=== PATIENT | female | born 1995 | race Caucasian/White ===

== ENCOUNTER 2017-03-11 10:41 | Emergency (ER) | payer MEDICAID ==
[2017-03-11 11:01] VITALS: BP 104/62
--- NOTE | 2017-03-11 11:25 | EDM.PDOC ---
ED HISTORY OF PRESENT ILLNESS - General Chief Complaint: Fever Stated Complaint: SORE THROAT,BODY ACHES,MIGRAINE,FEVER,RUNNY NOSE Time Seen by Provider: 03/11/17 11:05 Source of Information: Reports: Patient History Limitations: Reports: No limitations - History of Present Illness INITIAL COMMENTS - FREE TEXT/NARRATIVE: 21 YO WF presents to ER with cough, congestion, headache, fever/chills and body aches x 2 days. Pt reports taking OTC cold medicine yesterday without improvement. Symptom Onset Date: 03/10/17 Timing/Duration: Reports: Day(s): (2) Severity: mild Location, General: Reports: head, generalized Quality: Reports: Ache Improves with: Reports: Rest Worsens with: Reports: None Associated Symptoms (General): Reports: cough, headaches. 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 Neurological History: Reports: Migraines Psychiatric History: Reports: Depression, Suicide attempt - Past Surgical History Female Surgical History: Reports: section Neurological Surgical History: Reports: None Social & Family History - Family History Family Medical History: Noncontributory - Tobacco Use Smoking Status *Q: Never Smoker Second Hand Smoke Exposure: No - Caffeine Use Caffeine Use: Reports: None - Alcohol Use Days Per Week of Alcohol Use: 0 - Recreational Drug Use Recreational Drug Use: No - Living Situation & Occupation Living situation: Reports: ED ROS GENERAL - Review of Systems Review Of Systems: See Below Constitutional: Reports: fever, chills HEENT: Reports: Rhinitis Respiratory: Reports: Cough, Sputum. Denies: Shortness of Breath, Wheezing Cardiovascular: Reports: No symptoms Endocrine: Reports: no symptoms GI/Abdominal: Reports: No symptoms : Reports: no symptoms Musculoskeletal: Reports: back pain Skin: Reports: no symptoms Neurological: Reports: No Symptoms Psychiatric: Reports: No symptoms Hematologic/Lymphatic: Reports: no symptoms Immunologic: Reports: no symptoms ED EXAM, GENERAL - Physical Exam Exam: See Below Exam Limited By: No limitations General Appearance: alert, WD/WN, no apparent distress Nose: no blood, nasal drainage Throat/Mouth: Normal inspection, Normal lips, Normal teeth, Normal gums, Normal oropharynx, Normal voice, No airway compromise Head: atraumatic, normocephalic Neck: normal inspection, supple, non-tender, full range of motion Respiratory/Chest: no respiratory distress, lungs clear, normal breath sounds, no accessory muscle use, chest non-tender Cardiovascular: normal peripheral pulses, regular rate, rhythm, no edema, no gallop, no JVD, no murmur, no rub GI/Abdominal: normal bowel sounds, soft, non tender, no organomegaly, no distention, no abnormal bruit, no mass Back Exam: normal inspection, full range of motion, NT Extremities: normal inspection, normal range of motion, non-tender, normal capillary refill, no pedal edema Neurological: alert, oriented, CN II-XII intact, normal cognition, normal gait, normal reflexes, no motor/sensory deficits Psychiatric: normal affect, normal mood Skin Exam: Warm, Dry, Intact, Normal color, No rash Lymphatic: no adenopathy Course - Vital Signs Last Recorded V/S: Last Vital Signs Temp 37.5 C 03/11/17 11:45 Pulse 91 03/11/17 10:54 Resp 16 03/11/17 10:54 BP 104/62 03/11/17 10:54 Pulse Ox 100 03/11/17 10:54 - Orders/Labs/Meds Orders: Active Orders 24 hr Category Date Time Status INFLUENZA A+B AG SCREEN [RM] Stat Lab 03/11/17 11:22 Uncollected Meds: Medications Discontinued Medications Generic Name Dose Route Start Last Admin Trade Name Freq PRN Reason Stop Dose Admin Acetaminophen 1,000 mg 03/11/17 11:29 03/11/17 11:45 Tylenol Extra Strength PO 03/11/17 11:30 1,000 mg ONETIME ONE Administration Ketorolac Tromethamine 60 mg 03/11/17 11:29 03/11/17 11:44 Toradol IM 03/11/17 11:30 60 mg ONETIME ONE Administration Departure - Departure Time of Disposition: 12:10 Disposition: Home, Self-Care 01 Condition: good Clinical Impression: Viral syndrome Prescriptions: Cetirizine [ZyrTEC] 10 mg PO DAILY #30 tablet Ibuprofen [Motrin] 600 mg PO Q6H #20 tablet Oxymetazoline HCl [Afrin] 2 spray NS BID #1 spray diphenhydrAMINE [Benadryl] 50 mg PO BEDTIME #30 cap Instructions: Fever, Adult, [id number], Viral Respiratory Infection, Easy-To- Read Referrals: Paula Lane MD [Primary Care Provider] - Forms: ED Department Discharge - My Orders Last 24 Hours: My Active Orders 03/11/17 11:22 INFLUENZA A+B AG SCREEN [RM] Stat - Assessment/Plan Last 24 Hours: My Active Orders 03/11/17 11:22 INFLUENZA A+B AG SCREEN [RM] Stat Assessment:: 1. Viral URI 2. Fever Plan: 1. afrin nasal spray BID x 3 days 2. zyrtec 10mg PO QD 3. Benadyl 50mg PO QHS 4. Motrin 600mg PO Q8 PRn pain/fever
[2017-03-11] MEDS ORDERED: Ketorolac 60 MG/2 ML SDV IM ONE (11:29)
[2017-03-11] MEDS ORDERED: Acetaminophen 500 MG Tab PO ONE (11:29)
== END 2017-03-11 12:25 | disposition home or self-care (01) ==
LOC: KA.ED 10:41
DX: B34.9 Viral infection, unspecified (principal); G43.909 Migraine, unspecified, not intractable, without status migrainosus; F32.9 Major depressive disorder, single episode, unspecified; Z79.899 Other long term (current) drug therapy; Z98.890 Other specified postprocedural states
CPT/HCPCS: 87804; 96372; 99283; A9270; J1885

== ENCOUNTER 2017-07-17 04:07 | Emergency (ER) | payer SELFPAY ==
[2017-07-17 04:28] VITALS: BP 93/65
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
== END 2017-07-17 08:00 | disposition home or self-care (01) ==
LOC: KA.ED 04:07
DX: S00.83XA Contusion of other part of head, initial encounter (principal); G43.909 Migraine, unspecified, not intractable, without status migrainosus; F10.10 Alcohol abuse, uncomplicated; Z88.8 Allergy status to other drugs, medicaments and biological substances; Y04.2XXA Assault by strike against or bumped into by another person, initial encounter; Y92.511 Restaurant or cafe as the place of occurrence of the external cause
CPT/HCPCS: 99283

== ENCOUNTER 2018-03-20 11:45 | Emergency (ER) | payer MEDICAID ==
[2018-03-20] MEDS ORDERED: Sodium Chloride 0.9% 5 ML Syringe FLUSH PRN (12:14)
[2018-03-20] MEDS ORDERED: Sodium Chloride 0.9% 1,000 ML IV ONE (12:16)
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
[2018-03-20 12:37] LABS: CHLORIDE,CL 103 mmol/L (98-115); SODIUM,NA 140 mmol/L (136-145)
[2018-03-20 13:32] VITALS: BP 133/76
== END 2018-03-20 14:05 | disposition home or self-care (01) ==
LOC: KA.ED 11:45
DX: R10.84 Generalized abdominal pain (principal); F32.9 Major depressive disorder, single episode, unspecified; Z79.899 Other long term (current) drug therapy
CPT/HCPCS: 36415; 74177; 80053; 80305; 81001; 83690; 84703; 85025; 96360; 99284; 99285; G0480; J7030

== ENCOUNTER 2019-01-12 18:14 | Emergency (ER) | payer MEDICAID ==
[2019-01-12 18:19] VITALS: BP 132/59
[2019-01-12] MEDS ORDERED: Albuterol/Ipratropium 3.0-0.5 MG/3 ML Neb Soln NEB ONE ×2 (18:54→19:38)
[2019-01-12] MEDS ORDERED: Sodium Chloride 0.9% 10 ML Syringe FLUSH PRN (18:54)
[2019-01-12] MEDS ORDERED: methylPREDNISolone Sodium Succinate 125 MG/2 ML SDV IVPUSH ONE (18:54)
--- NOTE | 2019-01-12 19:00 | EDM.PDOC ---
ED HPI GENERAL MEDICAL PROBLEM - General Chief Complaint: Respiratory Problem Stated Complaint: cough/SOB Time Seen by Provider: 01/12/19 18:35 Source of Information: Reports: Patient History Limitations: Reports: No Limitations - History of Present Illness INITIAL COMMENTS - FREE TEXT/NARRATIVE: 23 YO HF [id number] 29 week IUP presents to ER with 2 week history of cough/ congestion and shortness of breath. Pt reports she is on augmentin as well as albuterol nebs but is having no relief. Pt denies chest pain, fever/chills or nausea/vomiting but states she has had a productive cough with yellow phlegm. Pt states shes been seen in clinic x 2 and was recommended to come to ER if symptoms fail to improve. Onset Date: 12/29/18 Duration: Week(s): (2) Severity: Mild Improves with: Reports: None Worsens with: Reports: None Associated Symptoms: Reports: cough w sputum, Shortness of Breath. Denies: Chest Pain, Fever/Chills, Nausea/Vomiting Chest Pain Score (Numeric/FACES): 9 - Related Data Allergies Allergy/AdvReac Type Severity Reaction Status Date / Time No Known Drug Allergies Allergy Other Verified 01/12/19 18:19 Home Meds: Home Meds Doxylamine Succinate [Unisom] 25 mg PO BEDTIME 09/13/18 [History] PNV95/Ferrous Fumarate/FA [ Vitamin Tablet] 1 each PO DAILY 09/13/18 [ History] Ranitidine HCl [Ranitidine] 150 mg PO DAILY 09/13/18 [History] Albuterol Sulfate [Proair Hfa] 1 puff INH Q4HR PRN 01/12/19 [History] Albuterol [Proventil Neb Soln] 1.25 mg NEB Q4HRRT #30 neb 01/12/19 [Rx] Amoxicillin 10 ml PO TID 01/12/19 [History] Azithromycin [Zithromax] 250 mg PO DAILY #6 tab 01/12/19 [Rx] guaiFENesin/Codeine Phosphate [Guaiatussin AC Liquid] 01/12/19 [History] predniSONE [Prednisone] 20 mg PO DAILY #15 tablet 01/12/19 [Rx] Past Medical History - Past Health History Medical/Surgical History: Denies 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 Neurological History: Reports: Migraines Other Neuro History: UNRESPONSIVE EPISODES Psychiatric History: Reports: Depression, Suicide Attempt - Past Surgical History Female Surgical History: Reports: Section Other Female Surgeries/Procedures: Section X2 Social & Family History - Family History Family Medical History: Noncontributory - Tobacco Use Smoking Status *Q: Never Smoker - Caffeine Use Caffeine Use: Reports: Soda - Recreational Drug Use Recreational Drug Use: No - Living Situation & Occupation Living situation: Reports: ED ROS GENERAL - Review of Systems Review Of Systems: See Below Constitutional: Reports: No Symptoms HEENT: Reports: Rhinitis Respiratory: Reports: Shortness of Breath, Wheezing, Cough, Sputum Cardiovascular: Reports: No Symptoms Endocrine: Reports: No Symptoms GI/Abdominal: Reports: No Symptoms : Reports: No Symptoms Musculoskeletal: Reports: No Symptoms Skin: Reports: No Symptoms Neurological: Reports: No Symptoms Psychiatric: Reports: No Symptoms Hematologic/Lymphatic: Reports: No Symptoms ED EXAM, GENERAL - Physical Exam Exam: See Below Exam Limited By: No Limitations General Appearance: Alert, WD/WN, No Apparent Distress Ears: Normal External Exam, Normal Canal, Hearing Grossly Normal, Normal TMs Nose: Normal Inspection, Normal Mucosa, No Blood. No: Nasal Flaring Throat/Mouth: Normal Inspection, Normal Lips, Normal Teeth, Normal Gums, Normal Oropharynx, Normal Voice, No Airway Compromise Head: Atraumatic, Normocephalic Neck: Normal Inspection, Supple, Non-Tender, Full Range of Motion Respiratory/Chest: No Respiratory Distress, Decreased Breath Sounds, Wheezing. No: Crackles, Rales, Rhonchi, Stridor, Accessory Muscle Use, Retractions, Splinting, Prolonged Expiration Cardiovascular: Normal Peripheral Pulses, Regular Rate, Rhythm, No Edema, No Gallop, No JVD, No Murmur, No Rub GI/Abdominal: Normal Bowel Sounds, Soft, Non-Tender, No Organomegaly, No Distention, No Abnormal Bruit, No Mass Back Exam: Normal Inspection, Full Range of Motion, NT Extremities: Normal Inspection, Normal Range of Motion, Non-Tender, Normal Capillary Refill, No Pedal Edema Neurological: Alert, Oriented, CN II-XII Intact, Normal Cognition, Normal Gait, Normal Reflexes, No Motor/Sensory Deficits Psychiatric: Normal Affect, Normal Mood Skin Exam: Warm, Dry, Intact, Normal Color, No Rash Lymphatic: No Adenopathy Course - Vital Signs Last Recorded V/S: Last Vital Signs Temp 36.4 C 01/12/19 18:18 Pulse 114 H 01/12/19 18:18 Resp 20 01/12/19 18:18 BP 132/59 L 01/12/19 18:18 Pulse Ox 98 01/12/19 18:18 - Orders/Labs/Meds Orders: Active Orders 24 hr Category Date Time Status Peripheral IV Care [RC] . DIRECTED Care 01/12/19 18:54 Ordered RT Aerosol Therapy [RC] ASDIRECTED Care 01/12/19 18:55 Ordered RT Aerosol Therapy [RC] ASDIRECTED Care 01/12/19 19:38 Ordered Sodium Chloride 0.9% [Saline Flush] Med 01/12/19 18:54 Ordered 10 ml FLUSH Q8HR PRN Peripheral IV Insertion Adult [OM.PC] Routine Oth 01/12/19 18:54 Ordered Medication Orders Sodium Chloride (Saline Flush) 10 ml FLUSH Q8HR PRN PRN Reason: keep vein open Last Admin: 01/12/19 19:08 Dose: 10 ml Labs: Laboratory Tests 01/12/19 01/12/19 Range/Units 19:00 19:00 WBC 9.45 (5.00-10.00) 10^3/uL RBC 3.79 L (3.80-5.50) 10^6/uL Hgb 11.6 L (12.0-16.0) g/dL Hct 33.7 L (37.0-47.0) % MCV 88.9 (82.0-92.0) fL MCH 30.6 (27.0-31.0) pg MCHC 34.4 (32.0-36.0) g/dL RDW 13.3 (11.5-14.5) % Plt Count 213 (150-400) 10^3/uL MPV 9.4 (7.4-10.4) fL Immature Gran % (Auto) 0.3 (0.0-5.0) % Neut % (Auto) 63.2 (50.0-70.0) % Lymph % (Auto) 26.7 (20.0-40.0) % Mclean % (Auto) 5.4 (2.0-8.0) % Eos % (Auto) 4.2 H (1.0-3.0) % Baso % (Auto) 0.2 (0.0-1.0) % Immature Gran # (Auto) 0.03 (0.00-0.50) 10^3/uL Neut # (Auto) 5.97 (2.50-7.00) 10^3/uL Lymph # (Auto) 2.52 (1.00-4.00) 10^3/uL Mclean # (Auto) 0.51 (0.10-0.80) 10^3/uL Eos # (Auto) 0.40 H (0.10-0.30) 10^3/uL Baso # (Auto) 0.02 (0.00-0.10) 10^3/uL Sodium 140 (136-145) mmol/L Potassium 3.6 (3.3-5.3) mmol/L Chloride 106 (98-115) mmol/L Carbon Dioxide 19.4 L (21.0-32.0) mmol/L Anion Gap 18.2 H (5-15) mmol/L BUN 3 L (6-25) mg/dL Creatinine 0.46 L (0.51-1.17) mg/dL Est Cr Clr Drug Dosing 158.69 mL/min Estimated GFR (MDRD) > 60 mL/min Glucose 79 (75 - 99) mg/dL Calcium 8.5 L (8.7-10.3) mg/dL Meds: Medications Generic Name Dose Route Start Last Admin Trade Name Freq PRN Reason Stop Dose Admin Sodium Chloride 10 ml 01/12/19 18:54 01/12/19 19:08 Saline Flush FLUSH 10 ml Q8HR PRN Administration keep vein open Discontinued Medications Generic Name Dose Route Start Last Admin Trade Name Freq PRN Reason Stop Dose Admin Albuterol/Ipratropium 3 ml 01/12/19 18:54 01/12/19 19:14 Duoneb 3.0-0.5 Mg/3 Ml [facility] 01/12/19 18:55 3 ml ONETIME ONE Administration Albuterol/Ipratropium 3 ml 01/12/19 19:38 Duoneb 3.0-0.5 Mg/3 Ml [facility] 01/12/19 19:39 ONETIME ONE Methylprednisolone Sodium Succinate 125 mg 01/12/19 18:54 01/12/19 19:08 Solu-Medrol IVPUSH 01/12/19 18:55 125 mg ONETIME ONE Administration - Re-Assessments/Exams Free Text/Narrative Re-Assessment/Exam: 01/12/19 19:56 Pts cough and shortness of breath resolved after 2 x duoneb tx. Pt states she feels better and wants to be discharged Departure - Departure Time of Disposition: 19:56 Disposition: Home, Self-Care 01 Condition: Good Clinical Impression: Acute bronchitis Qualifiers: Bronchitis organism: unspecified organism Qualified Code(s): J20.9 - Acute bronchitis, unspecified - Discharge Information Prescriptions: Albuterol [Proventil Neb Soln] 1.25 mg NEB Q4HRRT #30 neb Azithromycin [Zithromax] 250 mg PO DAILY #6 tab predniSONE [Prednisone] 20 mg PO DAILY #15 tablet Instructions: Acute Bronchitis, Adult Referrals: Verito Alexis PA-C [Physician] - Forms: ED Department Discharge Additional Instructions: 1. discharge home 2. zpak 3. prednisone 60mg PO QD x 5 days 4. albuterol nebs Q4 and PRN 5. follow up in clinic for recheck next 48 hours 6. return to ER for worsening symptoms - My Orders Last 24 Hours: My Active Orders 01/12/19 18:54 Peripheral IV Care [RC] . DIRECTED Sodium Chloride 0.9% [Saline Flush] 10 ml FLUSH Q8HR PRN Peripheral IV Insertion Adult [OM.PC] Routine 01/12/19 18:55 RT Aerosol Therapy [RC] ASDIRECTED 01/12/19 19:38 RT Aerosol Therapy [RC] ASDIRECTED - Assessment/Plan Last 24 Hours: My Active Orders 01/12/19 18:54 Peripheral IV Care [RC] . DIRECTED Sodium Chloride 0.9% [Saline Flush] 10 ml FLUSH Q8HR PRN Peripheral IV Insertion Adult [OM.PC] Routine 01/12/19 18:55 RT Aerosol Therapy [RC] ASDIRECTED 01/12/19 19:38 RT Aerosol Therapy [RC] ASDIRECTED Assessment:: 1. acute bronchitis Plan: 1. discharge home 2. zpak 3. prednisone 60mg PO QD x 5 days 4. albuterol nebs Q4 and PRN 5. follow up in clinic for recheck next 48 hours 6. return to ER for worsening symptoms
[2019-01-12 19:31] LABS: ANION GAP 18.2 mmol/L (5-15); CHLORIDE,CL 106 mmol/L (98-115); SODIUM,NA 140 mmol/L (136-145)
== END 2019-01-12 20:20 | disposition home or self-care (01) ==
LOC: KA.ED 18:14
DX: O99.513 Diseases of the respiratory system complicating pregnancy, third trimester (principal); J20.9 Acute bronchitis, unspecified; Z3A.29 29 weeks gestation of pregnancy
CPT/HCPCS: 80048; 85025; 87804; 94640; 96374; 99284; J2930; J7620-GY

== ENCOUNTER 2019-11-04 15:00 | Emergency (ER) | payer SELFPAY ==
[2019-11-04 15:08] VITALS: BP 95/80; PULSE 72
--- NOTE | 2019-11-04 15:34 | EDM.PDOC ---
ED HPI GENERAL MEDICAL PROBLEM - General Chief Complaint: General Stated Complaint: RUG BURN, YEAST INFECTION Time Seen by Provider: 11/04/19 15:23 Source of Information: Reports: Patient History Limitations: Reports: No Limitations - History of Present Illness INITIAL COMMENTS - FREE TEXT/NARRATIVE: Patient is a 24-year-old female who presents to the emergency department. Symptoms are new with a complaint of vaginal discharge and left lower extremity abrasion. Patient states that she accidentally tripped on a rug and caused an abrasion on her left lower extremity. Patient also had a few day history of labial redness and vaginal discharge. Patient is currently 2 weeks late for her menstrual cycle. Patient admits to being sexually active. Patient's had 2 previous uneventful C-sections. Patient also states that she does shave her labia dry, without soap or shaving cream. Patient denies abdominal pain, chest pain, shortness of breath, fever, nausea, vomiting, diarrhea, oral lesions or sore throat, or history of STDs, Onset Date: 11/02/19 Duration: Day(s): Location: Reports: Lower Extremity, Left Quality: Reports: Burning Severity: Mild Improves with: Reports: None Worsens with: Reports: None Context: Reports: Trauma Associated Symptoms: Reports: No Other Symptoms - Related Data Allergies Allergy/AdvReac Type Severity Reaction Status Date / Time No Known Drug Allergies Allergy Other Verified 11/04/19 15:05 Home Meds: Home Meds Ibuprofen 200 mg PO DAILY PRN 11/04/19 [History] Past Medical History - Past Health History Medical/Surgical History: Denies 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 Neurological History: Reports: Migraines Other Neuro History: UNRESPONSIVE EPISODES Psychiatric History: Reports: Depression, Suicide Attempt - Past Surgical History Female Surgical History: Reports: Section Other Female Surgeries/Procedures: Section X2 Social & Family History - Family History Family Medical History: Noncontributory - Tobacco Use Smoking Status *Q: Never Smoker - Caffeine Use Caffeine Use: Reports: Soda - Recreational Drug Use Recreational Drug Use: No - Living Situation & Occupation Living situation: Reports: ED ROS GENERAL - Review of Systems Review Of Systems: Comprehensive ROS is negative, except as noted in HPI. Constitutional: Reports: No Symptoms HEENT: Reports: No Symptoms Respiratory: Reports: No Symptoms Cardiovascular: Reports: No Symptoms Endocrine: Reports: No Symptoms GI/Abdominal: Reports: No Symptoms : Reports: Discharge, Dysuria, Irregular Menses Musculoskeletal: Reports: No Symptoms Skin: Reports: Other (Abrasion to left lower extremity) Neurological: Reports: No Symptoms Psychiatric: Reports: No Symptoms Hematologic/Lymphatic: Reports: No Symptoms Immunologic: Reports: No Symptoms ED EXAM, GENERAL - Physical Exam Exam: See Below Exam Limited By: No Limitations General Appearance: Alert, WD/WN, No Apparent Distress Throat/Mouth: Normal Inspection, Normal Oropharynx, No Airway Compromise Head: Atraumatic, Normocephalic Neck: Normal Inspection, Supple. No: Lymphadenopathy (L), Lymphadenopathy (R) Respiratory/Chest: No Respiratory Distress, Lungs Clear, Normal Breath Sounds, No Accessory Muscle Use, Chest Non-Tender Cardiovascular: Normal Peripheral Pulses, Regular Rate, Rhythm, No Murmur GI/Abdominal: Normal Bowel Sounds, Soft, Non-Tender, No Organomegaly, No Distention, No Abnormal Bruit, No Mass (Female) Exam: Normal Bimanual Exam, Cervical Discharge, Vaginal Discharge ( Minimal white creamy discharge), Other (Mild labia erythema without lesions). No: Adnexal Mass, Adnexal Tenderness, Cervical Dilatation, Cervical Lesions, Cervix Motion Tenderness, Enlarged Uterus, Uterine Tenderness, Vaginal Bleeding , Vaginal Lesions Back Exam: Normal Inspection Extremities: Normal Inspection Neurological: Alert, Oriented, Normal Cognition Psychiatric: Normal Affect, Normal Mood Skin Exam: Warm, Dry, Intact, Normal Color, Other (Abrasion to Left hip) Lymphatic: No Adenopathy Course - Vital Signs Last Recorded V/S: Last Vital Signs Temp 96 F 11/04/19 15:08 Pulse 72 11/04/19 15:08 Resp 20 11/04/19 15:08 BP 95/80 11/04/19 15:08 Pulse Ox 98 11/04/19 15:08 - Orders/Labs/Meds Orders: Active Orders 24 hr Category Date Time Status Vaginal Exam [RC] Click to Edit Care 11/04/19 15:23 Ordered CHLAMYDIA/GC NUCLEIC ACID AMP [MREF] Stat Lab 11/04/19 15:23 Ordered Labs: Laboratory Tests 11/04/19 11/04/19 Range/Units 15:23 15:35 Sodium 142 (136-145) mmol/L Potassium 3.5 (3.3-5.3) mmol/L Chloride 105 (98-115) mmol/L Carbon Dioxide 25.4 (21.0-32.0) mmol/L Anion Gap 15.1 H (5-15) mmol/L BUN 10 (6-25) mg/dL Creatinine 0.79 (0.51-1.17) mg/dL Est Cr Clr Drug Dosing 91.62 mL/min Estimated GFR (MDRD) > 60 mL/min Glucose 92 (75 - 99) mg/dL Calcium 8.9 (8.7-10.3) mg/dL HCG, Quant 1 mIU/mL Specimen Type Urine void Urine Color Yellow (YELLOW) Urine Appearance Slightly cloudy H (CLEAR) Urine pH 6.0 (5.0-9.0) Ur Specific Milo 1.020 (1.005-1.030) Urine Protein Negative (NEGATIVE) mg/dL Urine Glucose (UA) Negative (NEGATIVE) mg/dL Urine Ketones Trace H (NEGATIVE) mg/dL Urine Occult Blood Negative (NEGATIVE) Urine Nitrite Negative (NEGATIVE) Urine Bilirubin Negative (NEGATIVE) Urine Urobilinogen 1.0 (0.2-1.0) E.U./dL Ur Leukocyte Esterase Negative (NEGATIVE) Urine RBC 0-5 (0-5) /HPF Urine WBC 0-5 (0-5) /HPF Ur Epithelial Cells Moderate H /LPF Urine Bacteria Moderate H (NONE TO FEW) /HPF Meds: Medications Discontinued Medications Generic Name Dose Route Start Last Admin Trade Name Freq PRN Reason Stop Dose Admin Silver Sulfadiazine 10 gm 11/04/19 15:45 Silvadene 1% Cream 50 Gm TOP 11/04/19 15:46 ONETIME ONE Silver Sulfadiazine 25 gm 11/04/19 16:17 Silvadene 1% Cream 50 Gm TOP 11/04/19 16:18 ONETIME ONE - Re-Assessments/Exams Free Text/Narrative Re-Assessment/Exam: 11/04/19 16:15 Patient afebrile, vital signs stable, wet prep negative, urinalysis negative. negative. GC chlamydia send out pending. Silvadene cream applied to left hip abrasion. Discussed with patient, proper method to shave labia. She will follow-up with PCP 11/04/19 16:17 11/04/19 16:19 Departure - Departure Time of Disposition: 16:18 Disposition: Home, Self-Care 01 Condition: Good Clinical Impression: Vaginal discharge, Abrasion - Discharge Information Instructions: Abrasion, [id number] Referrals: PCP,Not In Area [Primary Care Provider] - Forms: ED Department Discharge Additional Instructions: Results of testing will take 2-3 days. Please contact the hospital for results. Follow-up with your primary care provider in 2-3 days. Return to emergency department if symptoms continue or worsen. Sepsis Event Note - Evaluation Sepsis Screening Result: No Definite Risk - Focused Exam Vital Signs: Vital Signs Temp Pulse Resp BP Pulse Ox 11/04/19 15:08 96 F 72 20 95/80 98 Date Exam was Performed: 11/04/19 Time Exam was Performed: 16:19 - My Orders Last 24 Hours: My Active Orders 11/04/19 15:23 Vaginal Exam [RC] Click to Edit CHLAMYDIA/GC NUCLEIC ACID AMP [MREF] Stat - Assessment/Plan Last 24 Hours: My Active Orders 11/04/19 15:23 Vaginal Exam [RC] Click to Edit CHLAMYDIA/GC NUCLEIC ACID AMP [MREF] Stat Assessment:: Abrasion Plan: Follow-up with PCP
[2019-11-04] MEDS ORDERED: Silver Sulfadiazine 1% Crm 50 GM Tube TOP ONE ×2 (15:45→16:17)
[2019-11-04 15:54] LABS: ANION GAP 15.1 mmol/L (5-15); CHLORIDE,CL 105 mmol/L (98-115); SODIUM,NA 142 mmol/L (136-145)
[2019-11-06] MEDS ORDERED: Silver Sulfadiazine 1% Crm 25 GM Tube TOP SCH (13:15)
== END 2019-11-04 16:50 | disposition home or self-care (01) ==
LOC: KA.ED 15:00
DX: S70.212A Abrasion, left hip, initial encounter (principal); N89.8 Other specified noninflammatory disorders of vagina; W01.0XXA Fall on same level from slipping, tripping and stumbling without subsequent striking against object, initial encounter
CPT/HCPCS: 36415; 80048; 81001; 84702; 87210; 99283; 99284

== ENCOUNTER 2020-02-18 19:42 | Emergency (ER) | payer MEDICAID, OTHER ==
[2020-02-18 20:09] VITALS: BP 122/66; PULSE 79
--- NOTE | 2020-02-18 20:32 | EDM.PDOC ---
ED HPI GENERAL MEDICAL PROBLEM - General Chief Complaint: General Stated Complaint: ingrown toenail, UTI sx Time Seen by Provider: 02/18/20 20:18 Source of Information: Reports: Patient, Significant Other History Limitations: Reports: No Limitations - History of Present Illness INITIAL COMMENTS - FREE TEXT/NARRATIVE: Patient presents with dysuria that started yesterday morning and an ingrown toenail that has been hurting for two days. No fever. She has some low back pain but it is more central than flank. She wonders if she could be and LMP was 01/30. This is a little too early to test reliably. 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 Neurological History: Reports: Migraines Other Neuro History: UNRESPONSIVE EPISODES Psychiatric History: Reports: Depression, Suicide Attempt - Past Surgical History Female Surgical History: Reports: Section Other Female Surgeries/Procedures: Section X2 Social & Family History - Family History Family Medical History: Noncontributory - Caffeine Use Caffeine Use: Reports: Soda - Living Situation & Occupation Living situation: Reports: ED ROS GENERAL - Review of Systems Review Of Systems: See Below Constitutional: Denies: Fever, Chills, Malaise, Weakness HEENT: Denies: Ear Pain, Throat Pain, Vision Change Respiratory: Denies: Shortness of Breath, Cough Cardiovascular: Denies: Chest Pain, Lightheadedness, Syncope GI/Abdominal: Reports: Abdominal Pain (suprapubic). Denies: Vomiting : Reports: Dysuria, Other (No redness or itching but some clear vaginal drainage since yesterday) Musculoskeletal: Denies: Neck Pain, Shoulder Pain, Arm Pain, Back Pain, Hand Pain Skin: Denies: Cyanosis, Jaundice, Mottled, Pallor, Diaphoresis Neurological: Denies: Confusion, Dizziness, Headache, Seizure, Syncope, Trouble Speaking, Difficulty Walking Psychiatric: Denies: Agitation, Anxiety, Confusion ED EXAM, GENERAL - Physical Exam Exam: See Below Exam Limited By: No Limitations General Appearance: Alert, WD/WN, No Apparent Distress Eye Exam: Bilateral Eye: EOMI, Normal Inspection, PERRL Ears: Normal External Exam, Hearing Grossly Normal Nose: Normal Inspection, No Blood Throat/Mouth: Normal Inspection, Normal Lips, Normal Voice, No Airway Compromise Head: Atraumatic, Normocephalic Neck: Normal Inspection, Full Range of Motion Respiratory/Chest: No Respiratory Distress, Lungs Clear, Normal Breath Sounds Cardiovascular: Regular Rate, Rhythm, No Murmur GI/Abdominal: Normal Bowel Sounds, Soft, No Organomegaly, No Distention, Tender (suprapubic only). No: Guarding, Rigid Back Exam: Normal Inspection, Full Range of Motion, Paraspinal Tenderness ( muscular, bilat in low thorax) Extremities: Normal Range of Motion, Other (Right great toe is erythematous and tender to touch at the lateral nail border. No evidence of purulence but cellulitis is likely. Her toenail is cut very short and the skin is growing up over the edges and distal end of the nail. CMS intact.) Neurological: Alert, Oriented, Normal Cognition, No Motor/Sensory Deficits Psychiatric: Normal Affect, Normal Mood Skin Exam: Warm, Dry, Intact, Normal Color, No Rash Course - Vital Signs Last Recorded V/S: Last Vital Signs Temp 98.0 F 02/18/20 19:59 Pulse 79 02/18/20 19:59 Resp 20 02/18/20 19:59 BP 122/66 02/18/20 19:59 Pulse Ox 99 02/18/20 19:59 - Orders/Labs/Meds Labs: Laboratory Tests 02/18/20 02/18/20 02/18/20 Range/Units 20:15 20:27 20:27 WBC 11.07 H (5.00-10.00) 10^3/uL RBC 4.43 (3.80-5.50) 10^6/uL Hgb 13.0 (12.0-16.0) g/dL Hct 40.1 (37.0-47.0) % MCV 90.5 (82.0-92.0) fL MCH 29.3 (27.0-31.0) pg MCHC 32.4 (32.0-36.0) g/dL RDW 13.9 (11.5-14.5) % Plt Count 267 (150-400) 10^3/uL MPV 9.6 (7.4-10.4) fL Immature Gran % (Auto) 0.1 (0.0-5.0) % Neut % (Auto) 65.6 (50.0-70.0) % Lymph % (Auto) 23.4 (20.0-40.0) % Davidson % (Auto) 5.8 (2.0-8.0) % Eos % (Auto) 4.9 H (1.0-3.0) % Baso % (Auto) 0.2 (0.0-1.0) % Immature Gran # (Auto) 0.01 (0.00-0.50) 10^3/uL Neut # (Auto) 7.27 H (2.50-7.00) 10^3/uL Lymph # (Auto) 2.59 (1.00-4.00) 10^3/uL Davidson # (Auto) 0.64 (0.10-0.80) 10^3/uL Eos # (Auto) 0.54 H (0.10-0.30) 10^3/uL Baso # (Auto) 0.02 (0.00-0.10) 10^3/uL Sodium 141 (136-145) mmol/L Potassium 4.3 (3.3-5.3) mmol/L Chloride 103 (98-115) mmol/L Carbon Dioxide 26.2 (21.0-32.0) mmol/L Anion Gap 16.1 H (5-15) mmol/L BUN 10 (6-25) mg/dL Creatinine 0.70 (0.51-1.17) mg/dL Est Cr Clr Drug Dosing 103.40 mL/min Estimated GFR (MDRD) > 60 mL/min Glucose 89 (75 - 99) mg/dL Calcium 7.8 L (8.7-10.3) mg/dL Specimen Type . Urine Color Yellow (YELLOW) Urine Appearance Clear (CLEAR) Urine pH 5.5 (5.0-9.0) Ur Specific Henderson 1.025 (1.005-1.030) Urine Protein Negative (NEGATIVE) mg/dL Urine Glucose (UA) Negative (NEGATIVE) mg/dL Urine Ketones Negative (NEGATIVE) mg/dL Urine Occult Blood Negative (NEGATIVE) Urine Nitrite Negative (NEGATIVE) Urine Bilirubin Negative (NEGATIVE) Urine Urobilinogen 0.2 (0.2-1.0) E.U./dL Ur Leukocyte Esterase Negative (NEGATIVE) Meds: Medications Discontinued Medications Generic Name Dose Route Start Last Admin Trade Name Addie PRN Reason Stop Dose Admin Cephalexin 1,000 mg 02/18/20 21:14 Keflex PO 02/18/20 21:15 ONETIME ONE - Re-Assessments/Exams Free Text/Narrative Re-Assessment/Exam: 02/18/20 20:34 I discussed with patient that her toe is most likely infected. Waiting on UA now. I advised her to let the toenail grow longer especially at the corners and that she should try cutting the nail straight across, letting the corners to stay above the skin edges. This will take awhile to work for her and she may need to see a energy analyst to remove part of the nail if it is already growing deep into the skin. 02/18/20 21:19 CBC shows mild leukocytosis. UA is clear. The toe needs antibiotic treatment so I discussed with patient that it may help the urine symptoms as well but if not she should see her PCP in the next 2-3 days, especially if worsening. Patient was given first 2 doses of Cephalexin in ER for tonight and morning. Discharged to home in stable condition after discussion of findings and treatment plan. Departure - Departure Time of Disposition: 21:15 Disposition: Home, Self-Care 01 Condition: Good Clinical Impression: Ingrown toenail of right foot with infection, Dysuria - Discharge Information Referrals: Jennifer Marie MD [Primary Care Provider] - Forms: ED Department Discharge Additional Instructions: 1. Take antibiotic as directed. 2. Follow up with your PCP in 2-3 days if not improving. 3. Follow up with a energy analyst (foot doctor) or your PCP if the toenail is continuing to be a problem after the antibiotic is finished. Sepsis Event Note - Evaluation Sepsis Screening Result: No Definite Risk - Focused Exam Vital Signs: Vital Signs Temp Pulse Resp BP Pulse Ox 02/18/20 19:59 98.0 F 79 20 122/66 99 Date Exam was Performed: 02/18/20 Time Exam was Performed: 21:19
[2020-02-18 20:53] LABS: ANION GAP 16.1 mmol/L (5-15); CHLORIDE,CL 103 mmol/L (98-115); SODIUM,NA 141 mmol/L (136-145)
[2020-02-18] MEDS: Cephalexin 250 MG Cap PO ONE (21:20)
== END 2020-02-18 21:28 | disposition home or self-care (01) ==
LOC: SUPCPDRO 19:42 → KA.ED 19:42
DX: L60.0 Ingrowing nail (principal); R30.0 Dysuria
CPT/HCPCS: 36415; 80048; 81003; 85025; 99283; A9270

== ENCOUNTER 2020-04-10 15:21 | Emergency (ER) | payer MEDICAID ==
[2020-04-10 15:40] VITALS: BP 143/76; PULSE 62
[2020-04-10 16:37] LABS: ANION GAP 15.8 mmol/L (5-15); CHLORIDE,CL 102 mmol/L (98-115); SODIUM,NA 138 mmol/L (136-145)
--- NOTE | 2020-04-10 16:45 | EDM.PDOC ---
ED HPI GENERAL MEDICAL PROBLEM - General Chief Complaint: General Stated Complaint: PAIN UNDER STOMACH Time Seen by Provider: 04/10/20 15:36 Source of Information: Reports: Patient History Limitations: Reports: No Limitations - History of Present Illness INITIAL COMMENTS - FREE TEXT/NARRATIVE: Patient is a 24-year-old female who presents to the emergency department via private vehicle with a complaint of abdominal pain. Patient states that she's approximate 5 or 6 weeks . Pain began about 130pm today. Pain described as sharp and in suprapubic area. Patient also complained of mild dysuria yesterday and took an Azo tab. Patient was seen at [facility] on April 01 and found to have an hCG of 778, and also on April 08 and her hCG was 9138. Currently, patient denies vaginal bleeding, vaginal discharge, nausea, vomiting , diarrhea, fever, chest pain, shortness of breath, or upper respiratory symptoms. Onset: Today Duration: Hour(s): Location: Reports: Abdomen Quality: Reports: Sharp Severity: Mild Improves with: Reports: None Worsens with: Reports: None Context: Denies: Activity, Trauma Associated Symptoms: Reports: No Other Symptoms. 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 Neurological History: Reports: Migraines Other Neuro History: UNRESPONSIVE EPISODES Psychiatric History: Reports: Depression, Suicide Attempt Dermatologic History: Reports: Other (See Below) Other Dermatologic History: recurrent ingrown toenails - Past Surgical History Female Surgical History: Reports: Section Other Female Surgeries/Procedures: Section X2 Social & Family History - Family History Family Medical History: Noncontributory - Tobacco Use Smoking Status *Q: Former Smoker Used Tobacco, but Quit: Yes Month/Year Tobacco Last Used: 03/21/20 - Caffeine Use Caffeine Use: Reports: Soda Caffeine Use Comment: Drinks 1-2 cans/day - Recreational Drug Use Recreational Drug Use: No - Living Situation & Occupation Living situation: Reports: ED ROS GENERAL - Review of Systems Review Of Systems: Comprehensive ROS is negative, except as noted in HPI. Constitutional: Reports: No Symptoms HEENT: Reports: No Symptoms Respiratory: Reports: No Symptoms Cardiovascular: Reports: No Symptoms Endocrine: Reports: No Symptoms GI/Abdominal: Reports: Abdominal Pain : Reports: No Symptoms Musculoskeletal: Reports: No Symptoms Skin: Reports: No Symptoms Neurological: Reports: No Symptoms Psychiatric: Reports: No Symptoms Hematologic/Lymphatic: Reports: No Symptoms Immunologic: Reports: No Symptoms ED EXAM, GENERAL - Physical Exam Exam: See Below Exam Limited By: No Limitations General Appearance: Alert, WD/WN, No Apparent Distress Throat/Mouth: Normal Inspection, Normal Oropharynx, No Airway Compromise Head: Atraumatic, Normocephalic Neck: Normal Inspection Respiratory/Chest: No Respiratory Distress, Lungs Clear, Normal Breath Sounds, No Accessory Muscle Use, Chest Non-Tender Cardiovascular: Regular Rate, Rhythm, No Murmur GI/Abdominal: Normal Bowel Sounds, Soft, No Organomegaly, No Distention, No Abnormal Bruit, No Mass, Tender (Mild suprapubic) (Female) Exam: Deferred (Patient request) Back Exam: Normal Inspection. No: CVA Tenderness (L), CVA Tenderness (R) Extremities: Normal Inspection, No Pedal Edema Neurological: Alert, Oriented, Normal Cognition Psychiatric: Normal Affect, Normal Mood Skin Exam: Warm, Dry, Intact, Normal Color, No Rash Lymphatic: No Adenopathy Course - Vital Signs Last Recorded V/S: Last Vital Signs Temp 98.0 F 04/10/20 15:35 Pulse 62 04/10/20 15:35 Resp 16 04/10/20 15:35 BP 143/76 H 04/10/20 15:35 Pulse Ox 99 04/10/20 15:35 - Orders/Labs/Meds Labs: Laboratory Tests 04/10/20 04/10/20 04/10/20 Range/Units 15:40 15:40 15:40 WBC 6.48 (5.00-10.00) 10^3/uL RBC 4.33 (3.80-5.50) 10^6/uL Hgb 12.7 (12.0-16.0) g/dL Hct 38.7 (37.0-47.0) % MCV 89.4 (82.0-92.0) fL MCH 29.3 (27.0-31.0) pg MCHC 32.8 (32.0-36.0) g/dL RDW 13.3 (11.5-14.5) % Plt Count 239 (150-400) 10^3/uL MPV 9.2 (7.4-10.4) fL Immature Gran % (Auto) 0.2 (0.0-5.0) % Neut % (Auto) 61.7 (50.0-70.0) % Lymph % (Auto) 27.9 (20.0-40.0) % Benton % (Auto) 6.5 (2.0-8.0) % Eos % (Auto) 3.5 H (1.0-3.0) % Baso % (Auto) 0.2 (0.0-1.0) % Neut # (Auto) 4.00 (2.50-7.00) 10^3/uL Lymph # (Auto) 1.81 (1.00-4.00) 10^3/uL Benton # (Auto) 0.42 (0.10-0.80) 10^3/uL Eos # (Auto) 0.23 (0.10-0.30) 10^3/uL Baso # (Auto) 0.01 (0.00-0.10) 10^3/uL Immature Gran # (Auto) 0.01 (0.00-0.50) 10^3/uL Sodium 138 (136-145) mmol/L Potassium 3.2 L (3.3-5.3) mmol/L Chloride 102 (98-115) mmol/L Carbon Dioxide 23.4 (21.0-32.0) mmol/L Anion Gap 15.8 H (5-15) mmol/L BUN 4 L (6-25) mg/dL Creatinine 0.56 (0.51-1.17) mg/dL Est Cr Clr Drug Dosing TNP Estimated GFR (MDRD) > 60 mL/min Glucose 89 (75 - 99) mg/dL Calcium 8.4 L (8.7-10.3) mg/dL Total Bilirubin 0.6 (0.2-1.0) mg/dL AST 37 (15-37) U/L ALT 41 (12-78) U/L Alkaline Phosphatase 105 (46-116) IU/L Total Protein 7.9 (6.4-8.2) g/dL Albumin 3.59 (3.00-4.80) g/dL HCG, Quant 14171 mIU/mL Specimen Type Urincc Urine Color Light yellow (YELLOW) Urine Appearance Clear (CLEAR) Urine pH 6.5 (5.0-9.0) Ur Specific Barry <= 1.005 (1.005-1.030) Urine Protein Negative (NEGATIVE) mg/dL Urine Glucose (UA) Negative (NEGATIVE) mg/dL Urine Ketones Negative (NEGATIVE) mg/dL Urine Occult Blood Negative (NEGATIVE) Urine Nitrite Negative (NEGATIVE) Urine Bilirubin Negative (NEGATIVE) Urine Urobilinogen 0.2 (0.2-1.0) E.U./dL Ur Leukocyte Esterase Negative (NEGATIVE) Urine RBC 0-5 (0-5) /HPF Urine WBC 0-5 (0-5) /HPF Ur Epithelial Cells Many H /LPF Urine Bacteria Few (NONE TO FEW) /HPF - Re-Assessments/Exams Free Text/Narrative Re-Assessment/Exam: 04/10/20 16:44 Patient afebrile, vital signs stable, nontoxic appearing. Patient resting comfortably and mother at bedside. Discussed case with Dr. Bravo at [facility] in [place]. Patient will take private vehicle and present at the emergency department there for ultrasound to rule out ectopic . Departure - Departure Time of Disposition: 16:47 Disposition: DC/Tfer to Acute Hospital 02 Condition: Good Clinical Impression: Qualifiers: Weeks of gestation: less than 8 weeks Qualified Code(s): Z3A.01 - Less than 8 weeks gestation of Abdominal pain during Qualifiers: Trimester: first trimester Qualified Code(s): O26.891 - Other specified related conditions, first trimester - Discharge Information Instructions: Abdominal Pain During , [id number], First Trimester of , [id number] Referrals: Verito Alexis PA-C [Primary Care Provider] - Forms: ED Department Discharge Additional Instructions: Proceed directly to [facility] emergency department in [place] for ultrasound evaluation. Sepsis Event Note - Evaluation Sepsis Screening Result: No Definite Risk - Focused Exam Vital Signs: Vital Signs Temp Pulse Resp BP Pulse Ox 05/21/20 15:35 98.0 F 62 16 143/76 H 99 Date Exam was Performed: 04/10/20 Time Exam was Performed: 16:48 - Assessment/Plan Assessment:: Plan: Proceeding to [facility] ER for ultrasound
== END 2020-04-10 17:15 ==
LOC: KA.ED 15:21
DX: O99.89 Other specified diseases and conditions complicating pregnancy, childbirth and the puerperium (principal); R10.30 Lower abdominal pain, unspecified; Z87.891 Personal history of nicotine dependence; Z3A.01 Less than 8 weeks gestation of pregnancy
CPT/HCPCS: 36415; 80053; 81001; 84702; 85025; 99284

== ENCOUNTER 2020-09-07 21:36 | Emergency (ER) | payer SELFPAY ==
[2020-09-07 21:43] VITALS: BP 133/78; PULSE 96
--- NOTE | 2020-09-07 21:44 | EDM.PDOC ---
ED HPI GENERAL MEDICAL PROBLEM - General Chief Complaint: General Stated Complaint: SORE THROAT Time Seen by Provider: 09/07/20 21:44 Source of Information: Reports: Patient - History of Present Illness INITIAL COMMENTS - FREE TEXT/NARRATIVE: Erika, 25-year-old female, presents with mild pharyngitis with some drainage and cough producing clear and green-colored phlegm. She states onset Tuesday and has progressively worsened. Acknowledges 28-week gestation at this time with a due date of 02 December 2020. She states that this is very similar to an event a year ago that was treated with pink liquid medicine and successfully resolved. I question at that time she states yes she was at the time she was treated for similar symptoms. She states also that she had influenza at one point but her symptoms are not similar to that at this time. She is unaware of any COVID-19 exposure., Denies fever chills and/or body aches. She did use an inhaler that she stated was her mother's, does not know what the medication was but denies any improvement in her status. 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 Neurological History: Reports: Migraines Other Neuro History: UNRESPONSIVE EPISODES Psychiatric History: Reports: Depression, Suicide Attempt Dermatologic History: Reports: Other (See Below) Other Dermatologic History: recurrent ingrown toenails - Past Surgical History Female Surgical History: Reports: Section Other Female Surgeries/Procedures: Section X2 Social & Family History - Family History Family Medical History: Noncontributory - Caffeine Use Caffeine Use: Reports: Soda Caffeine Use Comment: Drinks 1-2 cans/day - Living Situation & Occupation Living situation: Reports: ED ROS GENERAL - Review of Systems Review Of Systems: See Below Constitutional: Reports: No Symptoms HEENT: Reports: Throat Pain Respiratory: Reports: Cough Cardiovascular: Reports: No Symptoms Endocrine: Reports: No Symptoms GI/Abdominal: Reports: Distension ( related) : Reports: No Symptoms Musculoskeletal: Reports: No Symptoms Skin: Reports: No Symptoms Neurological: Reports: No Symptoms Psychiatric: Reports: No Symptoms Hematologic/Lymphatic: Reports: No Symptoms Immunologic: Reports: No Symptoms ED EXAM, GENERAL - Physical Exam Exam: See Below Free Text/Narrative:: Alert, oriented, in no apparent true distress. HEENT is negative discharge or deformity. Tympanic membranes are clear mild bulging on the right. Neck is soft supple with no lymphadenopathy posteriorly, no rigidity, mild anterior node enlargement right greater than left. Nasal passages are patent with no evidence of epistaxis. No turbinate hypertrophy. Oropharynx shows enlargement of the posterior tissue with exudate and erythema. Thorax is clear I do not appreciate any wheeze, no crackles, full inspiratory expiratory cycle with deep breathing inducing a mild cough. Cardiac is regular She has a gravid abdomen denying any complaints related to her , no discharge, no urine or bowel concerns. I discussed with her the aspects of limiting treatment as well as testing modalities when she does not appear significantly compromised. She requests antibiotic that starts with an A, that was pink in color provided as liquid at that time as she had difficulty swallowing pills. Course - Vital Signs Last Recorded V/S: Last Vital Signs Temp 36.1 C 09/07/20 21:39 Pulse 96 09/07/20 21:39 Resp 20 09/07/20 21:39 BP 133/78 09/07/20 21:39 Pulse Ox 98 09/07/20 21:39 - Orders/Labs/Meds Meds: Medications Discontinued Medications Generic Name Dose Route Start Last Admin Trade Name Freq PRN Reason Stop Dose Admin Amoxicillin 1,000 mg 09/07/20 22:00 09/07/20 22:05 Amoxil PO 09/07/20 22:01 1,000 mg ONETIME ONE Administration - Re-Assessments/Exams Free Text/Narrative Re-Assessment/Exam: 09/07/20 22:17 Secondary of second trimester hesitant to put her through repeated testing as likely would show an elevation in her white count, as well as x-ray not providing any benefit for findings on my examination. She does agree with this and predominantly requested the antibiotic treatment as it was very successful as in the past. Departure - Departure Time of Disposition: 22:05 Disposition: Home, Self-Care 01 Condition: Good Clinical Impression: Bronchitis Pharyngitis Qualifiers: Pharyngitis/tonsillitis etiology: unspecified etiology Qualified Code(s): J02.9 - Acute pharyngitis, unspecified Qualifiers: Weeks of gestation: 28 weeks Qualified Code(s): Z3A.28 - 28 weeks gestation of - Discharge Information Prescriptions: Amoxicillin 875 mg PO BID 10 Days #20 tablet Referrals: Verito Alexis PA-C [Primary Care Provider] - Forms: ED Department Discharge Additional Instructions: Amoxicillin twice daily for 10 days. This will cover your throat as well as hopefully prevent your cough from becoming bacterial pneumonia. You need to eat and drink healthy in regards to your . You need to follow-up with your KNIFE SETTER ASSEMBLER as scheduled. You need to follow-up with your clinic and/or KNIFE SETTER ASSEMBLER if this does not successfully treat your current symptoms. Make sure to get plenty of rest, eat healthy, drink plenty of fluids, and eat yogurt while taking the antibiotic to reduce the risk of yeast infection. Follow-up with clinic this week if not improving. Sepsis Event Note (ED) - Evaluation Sepsis Screening Result: No Definite Risk - Focused Exam Vital Signs: Vital Signs Temp Pulse Resp BP Pulse Ox 09/07/20 21:39 36.1 C 96 20 133/78 98 - Problem List & Annotations (1) Pharyngitis SNOMED Code(s): 475035932 Code(s): J02.9 - ACUTE PHARYNGITIS, UNSPECIFIED Status: Acute Priority: High Current Visit: Yes Qualifiers: Pharyngitis/tonsillitis etiology: unspecified etiology Qualified Code(s): J02.9 - Acute pharyngitis, unspecified (2) Bronchitis SNOMED Code(s): 00682279 Code(s): J40 - BRONCHITIS, NOT SPECIFIED ACUTE OR CHRONIC Status: Acute Priority: High Current Visit: Yes (3) SNOMED Code(s): 59805371 Code(s): Z34.90 - ENCNTR FOR SUPRVSN OF NORMAL , UNSP, UNSP TRIMESTER Status: Acute Current Visit: Yes Qualifiers: Weeks of gestation: 28 weeks Qualified Code(s): Z3A.28 - 28 weeks gestation of - Problem List Review Problem List Initiated/Reviewed/Updated: Yes - Assessment/Plan Plan: Amoxicillin twice daily for 10 days. This will cover your throat as well as hopefully prevent your cough from becoming bacterial pneumonia. You need to eat and drink healthy in regards to your . You need to follow-up with your KNIFE SETTER ASSEMBLER as scheduled. You need to follow-up with your clinic and/or KNIFE SETTER ASSEMBLER if this does not successfully treat your current symptoms. Make sure to get plenty of rest, eat healthy, drink plenty of fluids, and eat yogurt while taking the antibiotic to reduce the risk of yeast infection. Follow-up with clinic this week if not improving.
[2020-09-07] MEDS ORDERED: Amoxicillin 500 MG Cap PO ONE (22:00)
== END 2020-09-07 22:10 | disposition home or self-care (01) ==
LOC: KA.ED 21:36
DX: O99.512 Diseases of the respiratory system complicating pregnancy, second trimester (principal); J40 Bronchitis, not specified as acute or chronic; J02.9 Acute pharyngitis, unspecified; Z3A.28 28 weeks gestation of pregnancy
CPT/HCPCS: 99283; A9270-GY

== ENCOUNTER 2020-10-01 18:29 | Emergency (ER) | payer MEDICAID ==
--- NOTE | 2020-10-01 18:51 | EDM.PDOC ---
ED HPI GENERAL MEDICAL PROBLEM - General Stated Complaint: CONTRACTIONS?? Time Seen by Provider: 10/01/20 18:39 Source of Information: Reports: Patient History Limitations: Reports: No Limitations - History of Present Illness INITIAL COMMENTS - FREE TEXT/NARRATIVE: Patient presents with contractions and low abdominal pain extending down her legs. She started having contractions about an hour ago every 10 minutes, now they are every 5 minutes. She has delivered 3 babies via . She has had [place] contractions and says they don't cause pain down the legs like real contractions. She is 31 weeks and just moved back from [place] and hasn't seen a provider here yet. She has an OB provider at [facility] in [place] who delivered previous babies for her. No vomiting but has diarrhea. No bleeding or spotting. 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 Neurological History: Reports: Migraines Other Neuro History: UNRESPONSIVE EPISODES Psychiatric History: Reports: Depression, Suicide Attempt Dermatologic History: Reports: Other (See Below) Other Dermatologic History: recurrent ingrown toenails - Infectious Disease History Infectious Disease History: Reports: None - Past Surgical History Female Surgical History: Reports: Section Other Female Surgeries/Procedures: Section X2 Social & Family History - Family History Family Medical History: No Pertinent Family History - Caffeine Use Caffeine Use: Reports: Soda Caffeine Use Comment: Drinks 1-2 cans/day - Living Situation & Occupation Living situation: Reports: ED ROS GENERAL - Review of Systems Review Of Systems: See Below Constitutional: Denies: Fever, Chills, Malaise, Weakness, Fatigue HEENT: Denies: Ear Pain, Throat Pain, Vision Change Respiratory: Denies: Shortness of Breath, Cough Cardiovascular: Denies: Chest Pain, Lightheadedness, Syncope GI/Abdominal: Reports: Abdominal Pain, Diarrhea. Denies: Constipation, Vomiting : Reports: No Symptoms Musculoskeletal: Reports: No Symptoms Skin: Denies: Cyanosis, Jaundice, Mottled, Pallor, Diaphoresis Neurological: Denies: Confusion, Dizziness, Seizure, Syncope, Trouble Speaking, Difficulty Walking Psychiatric: Denies: Agitation, Anxiety ED EXAM - Physical Exam Exam: See Below Exam Limited By: No Limitations General Appearance: Alert, WD/WN, No Apparent Distress Eye Exam: Bilateral Eye: EOMI, Normal Inspection, PERRL Ears: Normal External Exam, Hearing Grossly Normal Nose: Normal Inspection, No Blood Throat/Mouth: Normal Inspection, Normal Lips, Normal Voice, No Airway Compromise Head: Atraumatic, Normocephalic Neck: Normal Inspection, Full Range of Motion Respiratory/Chest: No Respiratory Distress, Lungs Clear, Normal Breath Sounds Cardiovascular: Regular Rate, Rhythm, No Murmur (Female) Exam: Other (No cervical dilation evident). No: Cervix Motion Tenderness, Products of Conception, Tissue Present in Cervix/Vagina, Vaginal Bleeding, Vaginal Discharge Heart Tones: Present Heart Tones per Min: 130 Movement: Active Extremities: Normal Inspection, Normal Range of Motion Neurological: Alert, Oriented, Normal Cognition, No Motor/Sensory Deficits Psychiatric: Normal Affect, Normal Mood Skin Exam: Warm, Dry, Intact, Normal Color, No Rash Course - Re-Assessments/Exams Free Text/Narrative Re-Assessment/Exam: 10/01/20 19:[address] Ruth at [facility] in [place] and discussed case. She advised NS at 250cc/hr and send right away. Discussed findings and plan with patient who agrees. Stable at discharge. Departure - Departure Time of Disposition: 19:35 Disposition: DC/Tfer to Acute Hospital 02 Condition: Good Clinical Impression: Uterine contractions at greater than 20 weeks of gestation, 31 weeks gestation of - Discharge Information Referrals: Jennifer Marie MD [Primary Care Provider] -
[2020-10-01 19:12] VITALS: BP 131/72; PULSE 73
[2020-10-01] MEDS ORDERED: Sodium Chloride 0.9% 1,000 ML IV SCH (19:30)
== END 2020-10-01 19:48 ==
LOC: KA.ED 18:29
DX: O62.9 Abnormality of forces of labor, unspecified (principal); O99.513 Diseases of the respiratory system complicating pregnancy, third trimester; J45.909 Unspecified asthma, uncomplicated; Z3A.31 31 weeks gestation of pregnancy
CPT/HCPCS: 99284; 99285; J7030

== ENCOUNTER 2025-05-30 11:40 | Emergency (ER) | payer SELFPAY ==
[2025-05-30 12:07] LABS: BASOPHILS ABSOLUTE AUTO 0.02 10^3/uL (0.00-0.10); BASOPHILS PERCENT AUTO 0.5 % (0.0-1.0); EOSINOPHILS ABSOLUTE AUTO 0.45 10^3/uL (0.10-0.30); IMMATURE GRAN ABSOLUTE AUTO 0.01 10^3/uL (0.00-0.04); IMMATURE GRAN PERCENT AUTO 0.2 % (0.0-0.4); LYMPHOCYTES ABSOLUTE AUTO 0.96 10^3/uL (1.00-4.00); LYMPHOCYTES PERCENT AUTO 23.9 % (20.0-40.0); MEAN PLATELET VOLUME 9.3 fL (7.4-10.4); MONOCYTES ABSOLUTE AUTO 0.33 10^3/uL (0.10-0.80); MONOCYTES PERCENT AUTO 8.2 % (2.0-8.0); NEUTROPHILS ABSOLUTE AUTO 2.25 10^3/uL (2.50-7.00); NEUTROPHILS PERCENT AUTO 56.0 % (50.0-70.0); PLATELET COUNT,PLT 163 10^3/uL (150-400); RED BLOOD CELL COUNT 3.86 10^6/uL (3.80-5.50); RED CELL DISTRIBUTION WIDTH 12.8 % (11.5-14.5); WHITE BLOOD CELL COUNT,WBC 4.02 10^3/uL (5.00-10.00)
[2025-05-30 12:11] LABS: APPEARANCE,URINE CLEAR (CLEAR); GLUCOSE,URINE NEGATIVE (NEGATIVE); OCCULT BLOOD,URINE TRACE-INTACT (NEGATIVE)
[2025-05-30 12:20] LABS: EPITHELIAL CELLS,URINE FEW /LPF; OTHER CRYSTALS,URINE NOT SEEN /HPF
[2025-05-30 12:27] LABS: ALANINE AMINOTRANSFERASE,ALT 69.0 U/L (14-63); ASPARTATE AMNIOTRANSFERASE,AST 63.0 U/L (15-37); BILIRUBIN TOTAL 1.0 mg/dL (0.2-1.0); BLOOD UREA NITROGEN,BUN 4.0 mg/dL (7-18); CARBON DIOXIDE,CO2 26.9 mmol/L (21.0-32.0); CHLORIDE,CL 102.0 mmol/L (98-107); CREATININE 0.52 mg/dL (0.51-1.17); EOSINOPHILS PERCENT AUTO 11.2 % (1.0-3.0); EST CRCL DRUG DOSING (CG) 132.05 mL/min; ESTIMATED GFR 129.0 mL/min (>=60); GLUCOSE RANDOM 93.0 mg/dL (70-140); POTASSIUM,K 3.8 mmol/L (3.5-5.1); PROTEIN TOTAL,TP 7.7 g/dL (6.4-8.2); SODIUM,NA 139.0 mmol/L (136-145)
[2025-05-30 12:29] LABS: CORONAVIRUS COVID-19 NAA POSITIVE (NEGATIVE); INFLUENZA A NAA NEGATIVE (NEGATIVE); INFLUENZA B NAA NEGATIVE (NEGATIVE)
[2025-05-30 13:07] VITALS: BP 127/95; PULSE 79
== END 2025-05-30 13:05 | disposition home or self-care (01) ==
LOC: MERGE 11:45 → KA.ED 11:45
DX: U07.1 COVID-19 (principal); J06.9 Acute upper respiratory infection, unspecified; B97.89 Other viral agents as the cause of diseases classified elsewhere
CPT/HCPCS: 36415; 80053; 81001; 81025; 83690; 85025; 87086; 87088; 87636; 96360; 99284-25; J7030

== ENCOUNTER 2025-07-15 20:34 | Emergency (ER) | payer SELFPAY ==
[2025-07-15 21:37] LABS: GLUCOSE,URINE NEGATIVE (NEGATIVE); OCCULT BLOOD,URINE NEGATIVE (NEGATIVE)
[2025-07-15 21:48] LABS: APPEARANCE,URINE SLIGHTLY CLOUDY (CLEAR); EPITHELIAL CELLS,URINE FEW /LPF
[2025-07-16 01:25] VITALS: BP 130/70; PULSE 78
[2025-07-18 07:07] LABS: C.TRACHOMATIS BY TMA Negative (Negative); N.GONORRHOEAE BY TMA Negative (Negative)
== END 2025-07-15 22:21 | disposition home or self-care (01) ==
LOC: KA.ED 20:34
DX: B37.31 Acute candidiasis of vulva and vagina (principal); N30.00 Acute cystitis without hematuria; J45.909 Unspecified asthma, uncomplicated; Z79.51 Long term (current) use of inhaled steroids
CPT/HCPCS: 81001; 81025; 87086; 87088; 87210; 87491; 87591; 99284; A9270-GY

== ENCOUNTER 2025-10-08 00:58 | Emergency (ER) | payer SELFPAY ==
[2025-10-08 01:34] LABS: BASOPHILS ABSOLUTE AUTO 0.02 10^3/uL (0.00-0.10); BASOPHILS PERCENT AUTO 0.3 % (0.0-1.0); EOSINOPHILS ABSOLUTE AUTO 0.38 10^3/uL (0.10-0.30); EOSINOPHILS PERCENT AUTO 5.0 % (1.0-3.0); IMMATURE GRAN ABSOLUTE AUTO 0.01 10^3/uL (0.00-0.04); IMMATURE GRAN PERCENT AUTO 0.1 % (0.0-0.4); LYMPHOCYTES ABSOLUTE AUTO 2.23 10^3/uL (1.00-4.00); LYMPHOCYTES PERCENT AUTO 29.5 % (20.0-40.0); MEAN PLATELET VOLUME 9.3 fL (7.4-10.4); MONOCYTES ABSOLUTE AUTO 0.57 10^3/uL (0.10-0.80); MONOCYTES PERCENT AUTO 7.5 % (2.0-8.0); NEUTROPHILS ABSOLUTE AUTO 4.34 10^3/uL (2.50-7.00); NEUTROPHILS PERCENT AUTO 57.6 % (50.0-70.0); PLATELET COUNT,PLT 229 10^3/uL (150-400); RED BLOOD CELL COUNT 4.08 10^6/uL (3.80-5.50); RED CELL DISTRIBUTION WIDTH 13.1 % (11.5-14.5); WHITE BLOOD CELL COUNT,WBC 7.55 10^3/uL (5.00-10.00)
[2025-10-08 01:47] LABS: ALANINE AMINOTRANSFERASE,ALT 32.0 U/L (14-63); ASPARTATE AMNIOTRANSFERASE,AST 31.0 U/L (15-37); BILIRUBIN TOTAL 0.6 mg/dL (0.2-1.0); BLOOD UREA NITROGEN,BUN 7.0 mg/dL (7-18); CARBON DIOXIDE,CO2 27.7 mmol/L (21.0-32.0); CHLORIDE,CL 101.0 mmol/L (98-107); CREATININE 0.56 mg/dL (0.51-1.17); EST CRCL DRUG DOSING (CG) 122.62 mL/min; GLUCOSE RANDOM 96.0 mg/dL (70-140); POTASSIUM,K 3.6 mmol/L (3.5-5.1); PROTEIN TOTAL,TP 7.6 g/dL (6.4-8.2); SODIUM,NA 139.0 mmol/L (136-145)
[2025-10-08 01:48] LABS: ESTIMATED GFR 127.0 mL/min (>=60)
[2025-10-08 02:35] LABS: HCG QUANTITATIVE 4865.0 mIU/mL
[2025-10-08 02:52] LABS: APPEARANCE,URINE CLEAR (CLEAR); GLUCOSE,URINE NEGATIVE (NEGATIVE); OCCULT BLOOD,URINE NEGATIVE (NEGATIVE)
[2025-10-08 03:05] VITALS: BP 115/74; PULSE 58
== END 2025-10-08 03:08 ==
LOC: KA.ED 00:58
DX: O99.611 Diseases of the digestive system complicating pregnancy, first trimester (principal); R10.9 Unspecified abdominal pain; R11.2 Nausea with vomiting, unspecified; J45.909 Unspecified asthma, uncomplicated; Z79.899 Other long term (current) drug therapy
CPT/HCPCS: 80053; 81003; 83690; 84702; 85025; 96361; 96374; 96375; 99284; 99284-25; J2270; J2765; J7030